=== PATIENT | female | born 1990 | race African-American/Black ===

== ENCOUNTER 2018-12-29 18:02 | Emergency (ER) | payer OTHER ==
[~2018-12-29] VITALS: Ht 162.6 cm; Wt 63.5 kg
== END 2018-12-29 19:14 | disposition left against medical advice (07) ==
LOC: ER 18:02
DX: Z53.21 Procedure and treatment not carried out due to patient leaving prior to being seen by health care provider (principal)
CPT/HCPCS: A4663